=== PATIENT | female | born 1950 | race Hispanic/Latino ===

== ENCOUNTER 2018-07-02 15:07 | Observation (INO) | payer BC, MEDICARE ==
[~2018-07-02 15:07] MED LIST: ISOVUE-370 76%-LOCM 1 ML ONE; Lidocaine 1% PF 5 ML VIAL ONE; Ondansetron PF 4 MG/2 ML Vial ONE; PROPOFOL 200 MG/20 ML VIAL ONE; ePHEDrine 50 MG/ML VIAL ONE
[2018-07-02] MEDS ORDERED: Ondansetron PF 4 MG/2 ML Vial ONE (15:26)
[2018-07-02] MEDS ORDERED: Fentanyl 100 MCG/2 ML VIAL ONE ×2 (15:26→20:09)
[2018-07-02 15:32] LABS: #Basophils 0.1 thou/uL (0.0-0.2); #Lymphocytes 1.6 thou/uL (1.20-3.40); #Monocytes 0.5 thou/uL (0.11-0.59); %Basophils 0.8 % (0.0-1.0); %Eosinophils 0.3 % (0.0-10.0); %Lymphocytes 15.3 % (21.0-51.0); %Monocytes 4.4 % (0.0-10.0); %Neutrophils 79.1 % (42.0-75.0); Hemoglobin 16.6 g/dL (12.0-16.0); Mean Corpuscular HGB CONC 33.4 g/dL (32.0-36.0); Mean Corpuscular Hemoglobin 30.4 pg (27.0-31.0); Mean Corpuscular Volume 91.1 fL (78.0-98.0); Red Blood Cell (RBC) Count 5.47 mill/uL (4.20-5.40); White Blood Cell (WBC) Count 10.1 thou/uL (4.8-10.8)
[2018-07-02 15:46] LABS: ALT (SGPT) 44 U/L (8-55); AST (SGOT) 33 U/L (5-34); Alkaline Phosphatase 122 U/L (40-150); Anion Gap 12 mmol/L (10-20); BUN (Urea Nitrogen) 16 mg/dL (9.8-20.1); Bilirubin, Total 0.8 mg/dL (0.2-1.2); Calc. Creatinine Clearance 0 mL/min (70-130); Calcium 9.7 mg/dL (7.8-10.44); Carbon Dioxide 26 mmol/L (23-31); Chloride 102 mmol/L (98-107); Estimated GFR-MDRD 73; Globulin 4.3 g/dL (2.4-3.5); Glucose 314 mg/dL (80-115); Lipase 38 U/L (8-78); Potassium 3.8 mmol/L (3.5-5.1); Protein, Total 8.3 g/dL (6.0-8.3); Sodium 136 mmol/L (136-145)
[2018-07-02 15:50] LABS: Mean Platelet Volume 10.6 fL (7.4-10.4); Platelet Count 107 thou/uL (130-400); Platelet Morphology Comment Appears Decreased
--- NOTE | 2018-07-02 16:34 | CT ---
CT ABDOMEN AND PELVIS: 07/02/2018 HISTORY: Ventral hernia. Right lower quadrant pain. COMPARISON: None. TECHNIQUE: Axial CT imaging at 5 mm intervals, from the lung bases through the pubic symphysis, with IV contrast . Coronal reformatted imaging obtained. FINDINGS: The imaged lung bases are unremarkable. No free intraperitoneal air or fluid is noted. The hepatic parenchyma is markedly abnormal, demonstrating marked heterogeneity and prominent periphe ral contour irregularity. There is a suggestion of numerous small, hypodense lesions scattered throu ghout the liver, as well. The spleen is normal in size. Three calcified stones are noted within the gallbladder, measuring up to 8 mm. The pancreas, adrenal glands, and kidneys appear unremarkable. There is an inguinal hernia present on the right. This hernia is medial to the femoral artery and th e femoral vein. The hernia sac is located lateral to the pubic tubercle, most consistent with a righ t-sided femoral hernia. There is a loop of bowel, which is tethered in the right lower quadrant. It extends into this hernia, likely on the basis of small bowel. There is a small amount of associated fluid and inflammatory stranding within the inferior aspect of this femoral hernia sac. The hernia sac measures approximately 3.9 cm in craniocaudal dimension. There is no evidence for associated bowel obstruction. The appendix is visualized and is within normal limits. The vascular structures of the abdomen/pelvis appear patent. No lymphadenopathy is seen in the retro peritoneum, the pelvis or the mesentery. Review of the osseous structures demonstrates lower lumbar spine facet hypertrophic change, with no w orrisome lytic or blastic bone lesion. IMPRESSION: 1. There is a right-sided femoral hernia, which contains a tethered loop of small bowel. There is n o associated small bowel obstruction, but there are inflammatory changes within the inferior aspect o f the hernia sac, which includes small volume fluid and inflammatory fat stranding. 2. Markedly abnormal appearance of the liver, with marked peripheral contour irregularity, extensive abnormal heterogeneity, and a suggestion of numerous small hypodense nodules. Findings may be relat ed to cirrhosis, with multiple regenerative and/or dysplastic nodules. Metastatic disease cannot be excluded. Recommend follow-up evaluation via MRI of the abdomen with and without contrast. CODE T POS: NELSON
[2018-07-02] MEDS ORDERED: Lidocaine 2% Jelly 5 ML TUBE ONE (20:09)
[2018-07-02] MEDS ORDERED: Bupivacaine/Epinephrine 0.25% 30 ML VIAL ONE ×2 (20:12→21:20)
[2018-07-02] MEDS ORDERED: Ondansetron HCl/PF 4 MG/2 ML Vial IVP PRN (21:39)
[2018-07-02] MEDS ORDERED: Promethazine HCl 25 MG/ML VIAL SLOW IVP PRN (21:39)
[2018-07-02] MEDS ORDERED: Promethazine HCl 25 MG/ML VIAL IM PRN ×2 (21:39→22:29)
--- NOTE | 2018-07-02 21:44 | HP ---
CHIEF COMPLAINT: Incarcerated right inguinal hernia. HISTORY OF PRESENT ILLNESS: This is a 67-year-old female with a history of diabetes mellitus and hypertension, who presents with painful mass in the right groin. Her primary care physician had previously seen her for this hernia when it was reducible and she was sent to had an outpatient consult in September with the surgeon at [facility] [place]. She presents with worsening pain in the right groin, associated with abdominal bloating. She was seen in the emergency department where the hernia was not able to reduce. CT scan shows evidence of strangulation. There is no dilation of the intestine proximal, but it appears like at least part of the intestine is in the hernia sac. She denies previous history of repair here. She has had umbilical hernia repair in the past. Pain is described as 8/10 and sharp. She has not had any nausea or vomiting. PAST MEDICAL HISTORY: Includes hypertension, diabetes mellitus. PAST SURGICAL HISTORY: Cataracts, umbilical hernia. MEDICATIONS: Medicines taken daily; 1. Amlodipine. 2. Atenolol. 3. Statin. 4. Invokana. 5. Clopidogrel. 6. Glyburide. 7. Januvia. 8. Lisinopril. 9. Tramadol. SOCIAL HISTORY: No alcohol. Former smoker. REVIEW OF SYSTEMS: Ten systems review of systems are otherwise negative unless described above. PHYSICAL EXAMINATION: HEENT: Sclerae anicteric. Oropharynx clear. NECK: No lymphadenopathy. CHEST: Clear. HEART: Regular rate and rhythm. ABDOMEN: Soft, minimally distended. No guarding or rebound. No ischemia or edema to extremities. Hernia, she has what appears to be a femoral hernia in the right groin that is not reducible. Attempts at reduction by me not successful. IMAGING STUDIES: CT scan shows evidence of incarcerated strangulated right inguinal hernia. ASSESSMENT: 1. Incarcerated strangulated right inguinal versus femoral hernia. 2. Diabetes mellitus type 2. 3. Hypertension. PLAN: Urgent repair tonight . Risks, benefits, alternatives were discussed and she understands. This needs to be repaired urgently now. We will do this tonight. She understands risks of bleeding, infection, scarring, mesh infection, need for recurrent surgery or revision. We will do this tonight. Job ID: [id number]
--- NOTE | 2018-07-02 21:47 | OP ---
DATE OF PROCEDURE: 07/02/2018 PREOPERATIVE DIAGNOSIS: Incarcerated strangulated right inguinal hernia. POSTOPERATIVE DIAGNOSIS: Incarcerated strangulated right inguinal hernia. PROCEDURE PERFORMED: Incarcerated strangulated right femoral hernia repair with mesh. ANESTHESIA: General. ESTIMATED BLOOD LOSS: Minimal. COMPLICATIONS: None. FINDINGS: There is a viable intestine in the hernia sac, it was all reduced back into the preperitoneal space. TECHNIQUE: The patient was taken to the operating room and laid supine on the operating room table. After general anesthetic was obtained, the right groin was shaved. A Orozco was placed. The right groin and abdomen were prepped and draped in a sterile fashion. Oblique incision was made above the inguinal crease. Cautery was dissected down to the Miller's to expose the external oblique. Below the external oblique in the inguinal fold, below the inguinal crease, there was an obvious incarcerated femoral hernia. This was dissected back to its base in the femoral canal. There was an edge of a small loop of bowel that was reduced back into the abdominal cavity, it was viable. All the preperitoneal fat was reduced back as well. Polypropylene pre-cut mesh was brought into the sterile field, it was rolled, and the roll was held in place using an Ethibond suture through the middle. This was placed into the femoral canal. This cylinder of mesh was sewn anteriorly to the inguinal ligament and medial to the inguinal ligament. No sutures were placed lateral in the area of femoral vein. The wound was irrigated. The deep tissues were closed using 3-0 Vicryl. The Miller's was closed using 3-0 Vicryl. Skin was closed using running 4-0 Monocryl and Dermabond. The patient was then returned to Recovery in stable condition. All instrument counts, needle counts, and lap counts were correct. Job ID: [id number]
[2018-07-02] MEDS ORDERED: Morphine 4 MG/ML VIAL SLOW IVP PRN ×2 (22:29)
[2018-07-02] MEDS ORDERED: HYDROcodone/Acetaminophen 10/325 mg Tablet PO PRN ×2 (22:29)
[2018-07-02] MEDS ORDERED: Acetaminophen 325 MG TAB PO PRN (22:29)
[2018-07-02] MEDS ORDERED: Ondansetron PF 4 MG/2 ML Vial IVP PRN (22:29)
[2018-07-02] MEDS ORDERED: Dextrose 5% in Water 1,000 ML IV PRN (22:29)
[2018-07-02] MEDS ORDERED: Dextrose 50% Abboject 50 ML SYRINGE SLOW IVP PRN (22:29)
[2018-07-02] MEDS ORDERED: hydrALAZINE 20 MG/ML VIAL SLOW IVP PRN (22:29)
[2018-07-02 23:55] VITALS: BMI 25.4
[2018-07-03] MEDS: Sodium Chloride 0.9% 1,000 ML IV SCH ×2 (01:16→14:03)
[2018-07-03] MEDS: HumaLOG 300 UNITS/3 ML VIAL SC PRN ×2 (06:26→14:06)
[2018-07-03] MEDS ORDERED: metFORMIN 500 MG TAB PO SCH (08:00)
[2018-07-03] MEDS ORDERED: glyBURIDE 5 MG TAB PO SCH (08:00)
[2018-07-03] MEDS ORDERED: Famotidine/PF 20 mg/2ml Vial SLOW IVP SCH (09:00)
[2018-07-03] MEDS ORDERED: Atenolol 50 MG TAB PO SCH (09:00)
[2018-07-03] MEDS ORDERED: Lisinopril/Hydrochlorothiazide 20/25 mg Tablet PO SCH (09:00)
[2018-07-03] MEDS ORDERED: Amlodipine 5 MG TAB PO SCH (09:00)
[2018-07-03] MEDS ORDERED: Famotidine 20 MG TAB PO SCH (09:00)
--- NOTE | 2018-07-03 10:11 | DIS ---
DATE OF ADMISSION: 07/02/2018 DATE OF DISCHARGE: 07/03/2018 ADMITTING DIAGNOSES: Incarcerated femoral hernia, diabetes mellitus type 2. DISCHARGE DIAGNOSES: Incarcerated femoral hernia, diabetes mellitus type 2. PROCEDURE PERFORMED: Incarcerated femoral hernia repair with mesh by Nava without complication. CONDITION ON DISCHARGE: Improved. HOSPITAL COURSE: On postop day 1, the patient is complaining of pain at the site, but she is doing well otherwise. Her vital signs are stable. She was discharged home. She will follow up with me in the office in 2 weeks. She had nodular changes of her liver on her CT scan. We will have this further worked up as an outpatient, likely with GI referral. Job ID: [id number]
[2018-07-03 11:46] VITALS: BP 111/67; TEMP 98.3
== END 2018-07-03 14:30 | disposition home or self-care (01) ==
LOC: ERS 15:07 → SDC 20:43 → ERS 20:43 → SURG B 21:02
PROVIDERS: ADMIT Surgery; ATTEND Surgery
PROC: 0YU70JZ Supplement Right Femoral Region with Synthetic Substitute, Open Approach (ICD-10-PCS; principal; 2018-07-02)
DX: K41.30 Unilateral femoral hernia, with obstruction, without gangrene, not specified as recurrent (principal); I10 Essential (primary) hypertension; E11.9 Type 2 diabetes mellitus without complications; Z87.891 Personal history of nicotine dependence; Z88.6 Allergy status to analgesic agent; Z79.02 Long term (current) use of antithrombotics/antiplatelets; Z79.84 Long term (current) use of oral hypoglycemic drugs; Z79.899 Other long term (current) drug therapy; Z98.890 Other specified postprocedural states
CPT/HCPCS: 36415; 36416; 74177; 80053; 83605; 83690; 85025; 90471; 90662; 93005; 96361; 96374; 96375; C1781; G0008; G0378; J2001; J2405; J2704; J3010; J3490; Q9966

== ENCOUNTER 2021-08-30 12:26 | Inpatient (IN) | payer MEDICARE, BC ==
[~2021-08-30 12:26] MED LIST changes: -ISOVUE-370 76%-LOCM 1 ML ONE; +Iopamidol-370 76% 500 ML 1 ML ONE; -Lidocaine 1% PF 5 ML VIAL ONE; -Ondansetron PF 4 MG/2 ML Vial ONE; -PROPOFOL 200 MG/20 ML VIAL ONE; -ePHEDrine 50 MG/ML VIAL ONE
[2021-08-30] MEDS ORDERED: Ondansetron PF 4 MG/2 ML Vial ONE ×2 (13:35→16:29)
[2021-08-30] MEDS ORDERED: Dicyclomine 20 MG/2 ML VIAL ONE (13:35)
[2021-08-30 13:43] LABS: #Eosinphils 0.1 thou/uL (0.0-0.7); #Monocytes 0.4 thou/uL (0.11-0.59); #Neutrophils 8.2 thou/uL (1.40-6.50); %Basophils 0.2 % (0.0-1.0); %Eosinophils 0.6 % (0.0-10.0); %Lymphocytes 10.7 % (21.0-51.0); %Monocytes 4.4 % (0.0-10.0); %Neutrophils 84.2 % (42.0-75.0); Hemoglobin 16.3 g/dL (12.0-16.0); Mean Corpuscular HGB CONC 33.3 g/dL (32.0-36.0); Mean Corpuscular Hemoglobin 31.9 pg (27.0-31.0); Mean Corpuscular Volume 95.7 fL (78.0-98.0); Mean Platelet Volume 11.2 fL (7.4-10.4); Platelet Count 63 thou/uL (130-400); RBC Distribution Width 12.5 % (11.5-14.5); Red Blood Cell (RBC) Count 5.12 mill/uL (4.20-5.40); White Blood Cell (WBC) Count 9.7 thou/uL (4.8-10.8)
[2021-08-30 14:02] LABS: ALT (SGPT) 44 U/L (8-55); AST (SGOT) 39 U/L (5-34); Albumin 3.6 g/dL (3.4-4.8); Alkaline Phosphatase 129 U/L (40-110); Anion Gap 17 mmol/L (10-20); BUN (Urea Nitrogen) 15 mg/dL (9.8-20.1); Bilirubin, Total 1.4 mg/dL (0.2-1.2); Calc. Creatinine Clearance 0 mL/min (70-130); Calcium 9.3 mg/dL (7.8-10.44); Carbon Dioxide 15 mmol/L (23-31); Chloride 106 mmol/L (98-107); Globulin 4.1 g/dL (2.4-3.5); Glucose 310 mg/dL (80-115); Lipase 17 U/L (8-78); Protein, Total 7.7 g/dL (5.8-8.1); Sodium 134 mmol/L (136-145)
[2021-08-30 15:04] LABS: Actual Bicarbonate (HCO3v) 23 mEq/L (22-28); Analyzer IN Cardio ER; Base Excess -2.7 mEq/L (-2.0 to +3.0); Calcium, Ionized (venous) 1.03 mmol/L (1.16-1.32); Chloride (VBG) 107 mmol/L (98-106); Hemoglobin (Hb) 17.6 g/dL (11.7-16.1); pH (venous) 7.36 (7.32-7.43)
[2021-08-30] MEDS ORDERED: Piperacillin/Tazobactam 4.5 GM VIAL ONE (15:27)
[2021-08-30] MEDS ORDERED: fentaNYL Citrate/PF 100 MCG/2 ML SYRINGE ONE (16:02)
[2021-08-30] MEDS ORDERED: Phenylephrine 10 MG/ML VIAL ONE (16:02)
[2021-08-30 16:12] LABS: Bilirubin Negative (Negative); Blood, Urine Negative (Negative); Clarity Clear (Clear); Glucose, Urine (Dipstick) Greater than 1000 mg/dL (Negative); Ketone, Urine 20 mg/dL (Negative); Leukocyte Negative Leu/uL (Negative); Nitrite Negative (Negative); Protein, Urine (Dipstick) Negative (Neg-Trace); Urobilinogen Normal mg/dL (Less than 2)
[2021-08-30] MEDS ORDERED: Promethazine HCl 25 MG/ML VIAL ONE (16:19)
[2021-08-30] MEDS ORDERED: Rocuronium Bromide 10 MG/ML (10ML VIAL) ONE (16:29)
[2021-08-30] MEDS ORDERED: PROPOFOL 200 MG/20 ML VIAL ONE (16:29)
[2021-08-30] MEDS ORDERED: Lidocaine 1% PF 5 ML VIAL ONE (16:29)
[2021-08-30] MEDS ORDERED: PHENYLEPHRINE-NS 100 MCG/ML 10 ML SYRINGE ONE (16:29)
[2021-08-30] MEDS ORDERED: Succinylcholine 200 MG/10 ml SYRINGE FS ONE (16:29)
[2021-08-30] MEDS ORDERED: Promethazine HCl 25 MG/ML VIAL IM PRN ×3 (17:45→17:48)
[2021-08-30] MEDS ORDERED: Ondansetron PF 4 MG/2 ML Vial IVP PRN ×2 (17:45→17:48)
[2021-08-30] MEDS ORDERED: Dextrose 5% in Water 1,000 ML IV PRN (17:45)
[2021-08-30] MEDS ORDERED: Dextrose 50% Abboject 50 ML SYRINGE SLOW IVP PRN (17:45)
[2021-08-30] MEDS ORDERED: hydrALAZINE 20 MG/ML VIAL SLOW IVP PRN (17:45)
[2021-08-30] MEDS ORDERED: Ondansetron HCl/PF 4 MG/2 ML Vial IVP PRN (17:48)
[2021-08-30] MEDS ORDERED: Zolpidem Tartrate 5 MG TAB PO PRN (17:48)
[2021-08-30] MEDS ORDERED: diphenhydrAMINE 50 MG/ML VIAL IM PRN (17:48)
[2021-08-30] MEDS ORDERED: fentaNYL Citrate/PF 2,000 MCG in Sodium Chloride 0.9% 60 ML IV PRN (17:48)
[2021-08-30] MEDS ORDERED: diphenhydrAMINE 50 MG/ML VIAL IVP PRN (17:48)
[2021-08-30] MEDS ORDERED: Naloxone HCl 0.4 mg/ml Vial IV PRN (17:48)
[2021-08-30] MEDS ORDERED: Promethazine HCl 25 MG/ML VIAL IVPB PRN (17:48)
[2021-08-30] MEDS ORDERED: diphenhydrAMINE 25 MG CAP PO PRN (17:48)
[2021-08-30] MEDS ORDERED: Fentanyl 100 MCG/2 ML VIAL ONE (17:57)
[2021-08-30] MEDS ORDERED: Communication Order-Pharmacy FS SCH (18:00)
[2021-08-30] MEDS: Famotidine 20 MG TAB PO SCH (21:59)
[2021-08-30] MEDS: Famotidine/PF 20 mg/2ml Vial SLOW IVP SCH (21:59)
[2021-08-30] MEDS: Sodium Chloride 0.9% 1,000 ML IV SCH ×2 (21:59→23:57)
[2021-08-30 22:17] VITALS: BMI 27.7
[2021-08-30 23:26] LABS: SARS-CoV-2 NAA Rapid Test Not Detected (NotDetected)
[2021-08-30] MEDS: HumaLOG 300 UNITS/3 ML VIAL SC PRN (23:58)
[2021-08-31 06:13] LABS: #Lymphocytes 1.1 thou/uL (1.20-3.40); #Monocytes 0.8 thou/uL (0.11-0.59); %Basophils 0.1 % (0.0-1.0); %Lymphocytes 8.6 % (21.0-51.0); %Monocytes 6.5 % (0.0-10.0); %Neutrophils 84.8 % (42.0-75.0); Hemoglobin 15.9 g/dL (12.0-16.0); Mean Corpuscular HGB CONC 33.2 g/dL (32.0-36.0); Mean Corpuscular Hemoglobin 31.2 pg (27.0-31.0); Mean Platelet Volume 9.4 fL (7.4-10.4); Platelet Count 118 thou/uL (130-400); RBC Distribution Width 12.5 % (11.5-14.5)
[2021-08-31] MEDS: HumaLOG 300 UNITS/3 ML VIAL SC PRN ×2 (06:23→12:44)
[2021-08-31 06:29] LABS: BUN (Urea Nitrogen) 10 mg/dL (9.8-20.1); Calc. Creatinine Clearance 95 mL/min (70-130); Calcium 8.5 mg/dL (7.8-10.44); Carbon Dioxide 20 mmol/L (23-31); Chloride 109 mmol/L (98-107); Glucose 231 mg/dL (80-115); Potassium 3.5 mmol/L (3.5-5.1); Sodium 138 mmol/L (136-145)
[2021-08-31] MEDS: Sodium Chloride 0.9% 1,000 ML IV SCH ×3 (06:36→23:00)
[2021-08-31] MEDS: Famotidine/PF 20 mg/2ml Vial SLOW IVP SCH ×2 (09:58→20:56)
[2021-08-31] MEDS: Famotidine 20 MG TAB PO SCH ×2 (10:15→20:56)
[2021-08-31 20:57] LABS: Anion Gap 13 mmol/L (10-20)
[2021-09-01 06:27] LABS: Anion Gap 12 mmol/L (10-20); BUN (Urea Nitrogen) 9 mg/dL (9.8-20.1); Calc. Creatinine Clearance 105 mL/min (70-130); Calcium 8.5 mg/dL (7.8-10.44); Carbon Dioxide 20 mmol/L (23-31); Chloride 107 mmol/L (98-107); Glucose 170 mg/dL (80-115); Potassium 3.4 mmol/L (3.5-5.1); Sodium 136 mmol/L (136-145)
[2021-09-01] MEDS: Famotidine/PF 20 mg/2ml Vial SLOW IVP SCH (08:45)
[2021-09-01] MEDS: Sodium Chloride 0.9% 1,000 ML IV SCH ×2 (08:45→18:02)
[2021-09-01] MEDS: Famotidine 20 MG TAB PO SCH ×2 (08:45→21:16)
[2021-09-01] MEDS: Acetaminophen 325 MG TAB PO PRN (21:16)
[2021-09-02] MEDS: Famotidine/PF 20 mg/2ml Vial SLOW IVP SCH ×3 (00:17→23:56)
[2021-09-02 05:55] LABS: #Eosinphils 0.2 thou/uL (0.0-0.7); #Lymphocytes 1.8 thou/uL (1.20-3.40); #Monocytes 0.7 thou/uL (0.11-0.59); #Neutrophils 4.7 thou/uL (1.40-6.50); %Basophils 0.2 % (0.0-1.0); %Eosinophils 2.3 % (0.0-10.0); %Lymphocytes 24.1 % (21.0-51.0); %Neutrophils 64.5 % (42.0-75.0); Hemoglobin 13.6 g/dL (12.0-16.0); Mean Corpuscular HGB CONC 32.9 g/dL (32.0-36.0); Mean Corpuscular Hemoglobin 30.5 pg (27.0-31.0); Mean Corpuscular Volume 92.9 fL (78.0-98.0); Mean Platelet Volume 8.7 fL (7.4-10.4); Platelet Count 101 thou/uL (130-400); RBC Distribution Width 11.9 % (11.5-14.5); Red Blood Cell (RBC) Count 4.46 mill/uL (4.20-5.40); White Blood Cell (WBC) Count 7.3 thou/uL (4.8-10.8)
[2021-09-02 06:13] LABS: Anion Gap 9 mmol/L (10-20); BUN (Urea Nitrogen) 10 mg/dL (9.8-20.1); Calc. Creatinine Clearance 125 mL/min (70-130); Calcium 8.1 mg/dL (7.8-10.44); Carbon Dioxide 22 mmol/L (23-31); Chloride 108 mmol/L (98-107); Glucose 115 mg/dL (80-115); Potassium 3.1 mmol/L (3.5-5.1); Sodium 136 mmol/L (136-145)
[2021-09-02] MEDS: Potassium Chloride 20 MEQ in Premix Bag 1 BAG IVPB SCH ×2 (09:37→12:04)
[2021-09-02] MEDS: Famotidine 20 MG TAB PO SCH ×2 (09:37→22:15)
[2021-09-02] MEDS ORDERED: traMADol HCl 50 MG TAB PO PRN ×2 (10:38)
[2021-09-02] MEDS: Sodium Chloride 0.9% 1,000 ML IV SCH (18:53)
[2021-09-02] MEDS: Acetaminophen 325 MG TAB PO PRN (22:15)
[2021-09-02] MEDS: HumaLOG 300 UNITS/3 ML VIAL SC PRN (22:17)
[2021-09-03] MEDS: HumaLOG 300 UNITS/3 ML VIAL SC PRN ×2 (06:50→14:32)
[2021-09-03] MEDS ORDERED: Amlodipine 5 MG TAB PO SCH (09:00)
[2021-09-03] MEDS ORDERED: Atenolol 50 MG TAB PO SCH (09:00)
[2021-09-03] MEDS: Famotidine/PF 20 mg/2ml Vial SLOW IVP SCH (09:13)
[2021-09-03] MEDS: Famotidine 20 MG TAB PO SCH (09:14)
[2021-09-03 16:07] VITALS: BP 146/80; TEMP 98.2
== END 2021-09-03 17:15 | disposition home or self-care (01) | DRG 335 ==
LOC: ERS 12:26 → SURG A 16:57
PROVIDERS: ADMIT Surgery; ATTEND Surgery
PROC: 0DNU0ZZ Release Omentum, Open Approach (ICD-10-PCS; principal; 2021-08-30)
DX: K56.50 Intestinal adhesions [bands], unspecified as to partial versus complete obstruction (principal); K55.019 Acute (reversible) ischemia of small intestine, extent unspecified; Z20.822 Contact with and (suspected) exposure to COVID-19; Z23 Encounter for immunization; E11.9 Type 2 diabetes mellitus without complications; I10 Essential (primary) hypertension; E78.5 Hyperlipidemia, unspecified; D69.6 Thrombocytopenia, unspecified; K56.7 Ileus, unspecified; Z79.4 Long term (current) use of insulin; Z79.84 Long term (current) use of oral hypoglycemic drugs; Z79.899 Other long term (current) drug therapy; Z88.6 Allergy status to analgesic agent
CPT/HCPCS: 36415; 36416; 74177; 80048; 80053; 81003; 82010; 82805; 83690; 85025; 90471; 90732; 96361; 96365; 96372; 96375; G0009; J0500; J1815; J2370; J2405; J2543; J2550; J2704; J3010; J3480; J3490; J7050; Q9967; S0028; U0002